=== PATIENT | female | born 1995 | race Caucasian/White ===

== ENCOUNTER 2019-10-03 12:18 | Outpatient (CLI) | payer MEDICAID, SELFPAY ==
--- NOTE | 2019-10-03 12:30 | US_ITS ---
WS: [id number] LIMITED OBSTETRICAL ULTRASOUND HISTORY: GESTATIONAL DIABETES COMPARISON: 07/14/2019 Presentation: Vertex. Cervix: Closed and normal length. Placenta: Anterior, no previa. Grade: 1 HEART: FHR of 144 BPM. measurements: BPD = 8.3 cm = 33w4d HC = 30.1 cm = 33w3d AC = 28.5 cm = 32w4d FL = 6.5 cm = 33w4d Visually the amniotic fluid is normal. Largest vertical pocket of fluid measures 4.0 cm. EFW: 2097 g; 73rd %. AGA by ultrasound: 33w2d FILIBERTO by ultrasound: 11/19/2019 Measurements are internally concordant. Appropriate growth since the prior ultrasound from 07/14/2019 . Less than 2 weeks discrepancy between the prior dating. US/[place] [id number] IMPRESSION: 1. Single intrauterine gestation of 33 weeks 2 days with an EDC of 11/19/2019. 2. No macrosomia. 3. weight at the 73rd percentile for age.
== END 2019-10-03 12:19 | disposition home or self-care (01) ==
LOC: RAD 12:23
PROVIDERS: Family Provider Family Medicine; PCP Family Medicine; Visit Provider Family Medicine
DX: O24.419 Gestational diabetes mellitus in pregnancy, unspecified control (principal); Z36.9 Encounter for antenatal screening, unspecified; Z3A.33 33 weeks gestation of pregnancy
CPT/HCPCS: 76816

== ENCOUNTER 2019-10-31 12:43 | Outpatient (CLI) | payer MEDICAID, SELFPAY ==
--- NOTE | 2019-10-31 12:48 | US_ITS ---
WS: [id number] BIOPHYSICAL PROFILE AND LIMITED OB. HISTORY: GESTATIONAL DIABETES COMPARISON: 10/03/2019, 07/14/2019 Presentation: Cephalic. Cervix: Poorly visualized. Placenta: Anterior with no previa or abruption. Grade: 1 HEART: FHR of 164BPM. measurements: BPD = 9.0 cm = 36w2d HC = 31.9 cm = 36w0d AC = 32.1 cm = 36w0d FL = 7.1 cm = 36w1d Amniotic fluid is visually normal. Largest vertical pocket is 3.7 cm. EFW: 2836g; 67th %. AGA by ultrasound: 36w1d FILIBERTO by ultrasound: 11/27/2019 Measurements are internally concordant. Appropriate growth since prior ultrasounds. Biophysical profile: Parameters are as follows: Breathin Movement: 2 Tone: 2 Fluid volume: 2 1. Biophysical profile score: 8/8. 2. Single intrauterine gestation of 36w1d and 11/27/2019. Measurements are internally concordant and appropriate growth since prior ultrasounds. 3. Estimated weight at the 67th percentile. US/US OB lmt w/ BPP wo NST IMPRESSION:
== END 2019-10-31 12:44 | disposition home or self-care (01) ==
LOC: RAD 12:45
PROVIDERS: Family Provider Family Medicine; PCP Family Medicine; Visit Provider Family Medicine
DX: O24.419 Gestational diabetes mellitus in pregnancy, unspecified control (principal); Z3A.36 36 weeks gestation of pregnancy
CPT/HCPCS: 76815; 76819

== ENCOUNTER 2019-10-31 13:42 | Outpatient (CLI) | payer MEDICAID, SELFPAY ==
[2019-10-31 13:42] VITALS: BMI 33.5
[2019-10-31 13:45] VITALS: RESP 16; TEMP 36.9
[2019-10-31 14:27] VITALS: BP 121/56; PULSE 110
== END 2019-10-31 14:32 | disposition home or self-care (01) ==
PROVIDERS: Family Provider Family Medicine; PCP Family Medicine; Visit Provider Family Medicine
DX: O24.419 Gestational diabetes mellitus in pregnancy, unspecified control (principal); Z3A.00 Weeks of gestation of pregnancy not specified
CPT/HCPCS: 59025

== ENCOUNTER 2019-11-03 16:25 | Outpatient (CLI) | payer MEDICAID, SELFPAY ==
[2019-11-03 16:43] VITALS: BP 136/65; PULSE 104
[2019-11-03 16:44] VITALS: RESP 17; TEMP 36.9
[2019-11-03 16:45] VITALS: BMI 74.5
[2019-11-03 17:04] VITALS: BP 126/66; PULSE 102
[2019-11-03 17:09] VITALS: BP 126/66; PULSE 102; RESP 18
== END 2019-11-03 17:12 | disposition home or self-care (01) ==
PROVIDERS: Family Provider Family Medicine; PCP Family Medicine; Visit Provider Family Medicine
DX: O24.419 Gestational diabetes mellitus in pregnancy, unspecified control (principal); Z3A.00 Weeks of gestation of pregnancy not specified
CPT/HCPCS: 59025; 99211

== ENCOUNTER 2019-11-07 10:16 | Outpatient (CLI) | payer MEDICAID, SELFPAY ==
--- NOTE | 2019-11-07 10:22 | US_ITS ---
WS: [id number] US OB BPP wo NST [id number] REASON FOR EXAM: GESTATIONAL DIABETES FINDINGS: The cervix measures 3.54 cm and appears to be closed. Cephalic presentation is noted. Anter ior placenta is seen normal. heart rate 144 beats for minute tone normal motion normal cardiac function normal biophysical profile 03/31. US/US OB BPP wo NST [id number] IMPRESSION: Biophysical profile 03/31 Cephalic presentation
== END 2019-11-07 10:17 | disposition home or self-care (01) ==
LOC: RAD 10:20
PROVIDERS: Family Provider Family Medicine; PCP Family Medicine; Visit Provider Family Medicine
DX: O24.419 Gestational diabetes mellitus in pregnancy, unspecified control (principal); Z3A.00 Weeks of gestation of pregnancy not specified
CPT/HCPCS: 76819

== ENCOUNTER 2019-11-07 10:53 | Outpatient (CLI) | payer MEDICAID, SELFPAY ==
[2019-11-07 12:05] VITALS: BP 119/64; PULSE 92; RESP 18; TEMP 36.7
== END 2019-11-07 12:07 | disposition home or self-care (01) ==
PROVIDERS: Family Provider Family Medicine; PCP Family Medicine; Visit Provider Family Medicine
DX: O16.9 Unspecified maternal hypertension, unspecified trimester (principal); Z3A.00 Weeks of gestation of pregnancy not specified
CPT/HCPCS: 59025; 99211

== ENCOUNTER 2019-11-10 13:01 | Outpatient (CLI) | payer MEDICAID, SELFPAY ==
[2019-11-10 13:20] VITALS: RESP 18; TEMP 37.1
[2019-11-10 13:41] VITALS: BMI 34.0
[2019-11-10 14:19] VITALS: BP 116/66; PULSE 104
[2019-11-10 14:20] VITALS: RESP 16; TEMP 36.8
== END 2019-11-10 14:21 | disposition home or self-care (01) ==
LOC: OPOB 13:31 → OBGYN 13:32 → OPOB 11-11 07:32
PROVIDERS: Family Provider Family Medicine; PCP Family Medicine; Visit Provider Family Medicine
DX: O24.419 Gestational diabetes mellitus in pregnancy, unspecified control (principal); Z3A.00 Weeks of gestation of pregnancy not specified
CPT/HCPCS: 59025

== ENCOUNTER 2019-11-14 10:40 | Outpatient (CLI) | payer MEDICAID, SELFPAY ==
--- NOTE | 2019-11-14 10:45 | US_ITS ---
WS: [id number] ULTRASOUND OB LIMITED TECHNIQUE: Limited ultrasound examination of the fetus. CLINICAL INFORMATION: GESTATIONAL DIABETES COMPARISON: November 07, 2019 FINDINGS: Cervix measures 4.4 cm Single interuterine gestation. Placental location is anterior. Placenta grade: 3 heart rate 138 BPM. Normal PRISCILLA Biophysical profile 8 out of 8. breathin movement: 2 tone: 2 Amniotic fluid: 2 IMPRESSION Normal biophysical profile 8 out of 8 Grade 3 placenta
== END 2019-11-14 10:41 | disposition home or self-care (01) ==
LOC: US 10:42
PROVIDERS: Family Provider Family Medicine; PCP Family Medicine; Visit Provider Family Medicine
DX: O24.419 Gestational diabetes mellitus in pregnancy, unspecified control (principal); Z3A.00 Weeks of gestation of pregnancy not specified
CPT/HCPCS: 76819

== ENCOUNTER 2019-11-14 11:10 | Outpatient (CLI) | payer MEDICAID, SELFPAY ==
[2019-11-14 11:28] VITALS: BMI 33.7
== END 2019-11-14 11:45 | disposition home or self-care (01) ==
LOC: OPOB 11:25 → OBGYN 11:26
PROVIDERS: Family Provider Family Medicine; PCP Family Medicine; Visit Provider Family Medicine
DX: O24.419 Gestational diabetes mellitus in pregnancy, unspecified control (principal); Z3A.00 Weeks of gestation of pregnancy not specified
CPT/HCPCS: 59025; 99211

== ENCOUNTER 2019-11-17 19:47 | Inpatient (IN) | payer MEDICAID, SELFPAY ==
[2019-11-17] VITALS (7 sets, daily range): BP systolic 123–153; BP diastolic 66–81; PULSE 88–97; TEMP 36.8; BMI 34.3
--- NOTE | 2019-11-17 19:52 | PM.OBGYHP ---
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 She presents at 38-4/7 weeks gestation for cervical ripening and induction of labor secondary to gestational diabetes requiring insulin. Patient has been pretty well controlled on Levemir 10 units twice daily. course has also been complicated by headaches as well as anemia of . testing has been fine. Present Details : 2 Para: 1 Date of Last Menstrual Period: 02/21/19 Calculated Date of Delivery: 11/28/19 Gestational Age Based on Last Menstrual Period: 38 Dating criteria OB: LMP confirmed by 2nd trimester US care: good care Ultrasounds: normal mid trimester US Obstetrical complications: gestational diabetes (Requiring insulin) and other (Anemia of ) Medical complications OB: psychiatric (Mood disorder for which she has been seeing behavioral health provider) Labs Blood type OB HPI: A (+) positive Rubella: Immune RPR: Negative GBS: Negative HBsAG: Negative Other Lab Information: Antibody screen: Negative Hemoglobin: Initially 12.6, recheck 10.9, and then 11 later GC/Chlamydia: Negative/negative Pap: Normal Quad screen: Negative Urine culture: Negative 3-hour GTT: Fasting 109, 1 hour 105, 2-hour 238, 3-hour 231 HIV screen: Negative L&D/Induction Specific History Indication for induction OB: medical complication (Gestational diabetes requiring insulin) Planned induction method: per misoprostol protocol Review of Systems Const: Denies: fever : Denies: vaginal bleeding or vaginal discharge Medications/Allergies Allergies Allergy/AdvReac Type Severity Reaction Status Date / Time No Known Allergies Allergy Verified 11/17/19 20:05 Physical Exam Narrative: EXAM NARRATIVE: For complete physical examination please refer to her record. heart tones have a baseline in the 120s to 130 with moderate variability and accelerations and no decelerations. She has no contractions. Const: COMMON NORMALS: no apparent distress, oriented x3, no limitations, healthy appearing, alert and well nourished : MANUAL OB EXAM: dilated (Closed), effaced 0% and station high Neuro: COMMON NORMALS: oriented x3 SENSORIUM/ORIENTATION: Yes alert Psych: COMMON NORMALS: mental status grossly normal, cooperative and affect normal (Blunted affect) Data : 11/17/19 20:40 A&P Assessment and plan (1) 38 weeks gestation of : Status: Acute Code(s): Z3A.38 - 38 weeks gestation of (2) Encounter for induction of labor: Cytotec per protocol... Patient has had this in the past, and she is aware of potential side effects and its mechanism of action. Status: Acute Code(s): Z34.90 - Encounter for supervision of normal , unspecified, unspecified trimester (3) Gestational diabetes requiring insulin: Will have her take her insulin this evening and will check her bedside fingerstick glucose per home regimen as long as she is eating. Status: Acute Code(s): O24.414 - Gestational diabetes mellitus in , insulin controlled (4) Anemia complicating : Status: Acute Code(s): O99.019 - Anemia complicating , unspecified trimester Attestations Medical Necessity Statement*: As patient has not yet delivered she will need at least one overnight stay and likely more. 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
[2019-11-17 21:01] LABS: Basophils % 0.2 %; Eosinophils # 0.1 10^3/uL (0.0-0.8); Eosinophils % 0.8 %; Hematocrit 35.3 % (37.0-47.0); Hemoglobin 11.1 g/dL (11.5-15.3); Lymphocytes # 3.6 10^3/uL (0.8-4.8); Lymphocytes % 29.7 %; Mean Corpuscular HGB Conc 31.4 g/dL (30.0-36.0); Mean Corpuscular Hemoglobin 27.2 pg (28.0-34.0); Mean Corpuscular Volume 86.5 fL (81-99); Monocytes # 0.9 10^3/uL (0.2-0.9); Neutrophils # 7.5 10^3/uL (1.8-7.7); Neutrophils % 61.9 %; Nucleated Red Blood Cells % 0 %; Platelet Count 468 10^3/cmm (130-400); Red Blood Count 4.08 10^6/uL (4.1-5.3); Red Cell Distribution Width 14.8 % (12.1-15.1); White Blood Count 12.1 10^3/uL (4.0-10.0)
[2019-11-17] MEDS: miSOPROStol 100 mcg tablet 25 MCG VAGINAL (21:24)
[2019-11-18] VITALS (30 sets, daily range): BP systolic 0–142; BP diastolic 0–78; PULSE 80–112; RESP 16–20; TEMP 36.6–37.1
[2019-11-18] MEDS: miSOPROStol 100 mcg tablet 25 MCG VAGINAL ×3 (01:17→18:43)
[2019-11-18 06:34] LABS: Glucose Point of Care 94 mg/dL (70-110)
--- NOTE | 2019-11-18 08:10 | PM.OBGYPN ---
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 She has reported increasing frequency and intensity of her contractions. Her bedside glucose was 94 this morning, and then she showered and ate breakfast. Labor: Dilation (cm): 0 Effacement (%): 0 Station: -5 Amniotic Membrane Status: Intact Monitor Mode: External Contraction Pattern: Irregular Contraction Intensity: Moderate Status: Category l Vitals/I&O/Wt Last Vital Signs Temp 98.8 F 11/18/19 04:00 Pulse 102 H 11/18/19 07:55 BP 127/67 11/18/19 07:55 Weight last 48 hrs Weight 200 lb Physical Exam Narrative: EXAM NARRATIVE: heart tones have been category 1 with moderate variability, normal baseline, accelerations and no decelerations. She is trever every 2 to 5 minutes and of mild to moderate intensity. : MANUAL OB EXAM: not dilated nor effaced and station high Psych: COMMON NORMALS: mental status grossly normal, thought process normal, cooperative, speech normal and activity/motor behavior normal SPEECH: Yes normal speech MOOD & AFFECT: Yes blunted affect THOUGHT PROCESS: normal thought process Data : 11/17/19 20:40 A&P Assessment and plan (1) Encounter for induction of labor: Since her contractions are increasing in frequency and intensity, we will continue to monitor her. Should her contractions decrease in frequency, we will likely give her another dose of Cytotec. Right now she denies need for anything for pain. Status: Acute Code(s): Z34.90 - Encounter for supervision of normal , unspecified, unspecified trimester (2) Anemia complicating : Status: Acute Code(s): O99.019 - Anemia complicating , unspecified trimester (3) Gestational diabetes requiring insulin: Since she had breakfast this morning, we will check a postprandial bedside glucose. We will then monitor her contraction pattern and make a decision regarding lunch in the next few hours. She will give herself her morning Levemir. Status: Acute Code(s): O24.414 - Gestational diabetes mellitus in , insulin controlled (4) 38 weeks gestation of : Status: Acute Code(s): Z3A.38 - 38 weeks gestation of Attestations Medical Necessity Statement*: As patient is trever with increasing frequency and intensity, she will require continued inpatient management. Coding Level of Care Code Acute Luncheonette Manager for Chg Fwd Diagnoses Encounter for induction of labor Z34.90 Anemia complicating O99.019 Gestational diabetes requiring insulin O24.414 38 weeks gestation of Z3A.38
[2019-11-18] MEDS: ondansetron 2 mg/ML SDV 2 mL 4 MG IVP (10:08)
[2019-11-18 10:15] LABS: Glucose Point of Care 97 mg/dL (70-110)
[2019-11-18 14:58] LABS: Glucose Point of Care 112 mg/dL (70-110)
--- NOTE | 2019-11-18 17:31 | P.PN_ITS ---
[employer] Subjective Subjective: Interval history: Patient received her third dose of Cytotec earlier this afternoon after lunch and has been trever fairly regularly. She feels as though her contractions are increasing in intensity. She feels as though they are about every 4 to 5 minutes. She has been up ambulating and has just finished her supper. Medications: Reviewed: Yes Labor: Dilation (cm): 1 Effacement (%): 50 Station: -2 Amniotic Membrane Status: Intact Monitor Mode: External Contraction Frequency: 5 Contraction Pattern: Irregular Contraction Intensity: Moderate Status: Category l Vitals/I&O/Wt Last Vital Signs Temp 98.5 F 11/18/19 13:28 Pulse 87 11/18/19 17:02 Resp 17 11/18/19 13:28 BP 116/58 11/18/19 17:02 11/18/19 11/18/19 11/18/19 06:59 14:59 22:59 Intake Total 240 / 240 Balance 240 / 240 Weight last 48 hrs Weight 200 lb Physical Exam Narrative: EXAM NARRATIVE: heart tones have been category 1 with a normal baseline, moderate variability, many accelerations and no decelerations. Patient has had intermittent monitoring and when last on the monitor her contractions were every 4 to 5 minutes and of moderate intensity. : MANUAL OB EXAM: dilated 1 cm, effaced 50% and station (-2 to -3) Psych: COMMON NORMALS: mental status grossly normal, thought process normal, cooperative, speech normal and activity/motor behavior normal SPEECH: Yes normal speech MOOD & AFFECT: Yes blunted affect THOUGHT PROCESS: normal thought process Data : 11/17/19 20:40 Other Labs: Bedside glucose checks have been 94, 97 A&P Assessment and plan (1) 38 weeks gestation of : Status: Acute Code(s): Z3A.38 - 38 weeks gestation of (2) Encounter for induction of labor: Patient has opted for a fourth dose of Cytotec and continues to make progress. We discussed pain medication options, and she states that she is fine for now. Status: Acute Code(s): Z34.90 - Encounter for supervision of normal , unspecified, unspecified trimester (3) Anemia complicating : Status: Acute Code(s): O99.019 - Anemia complicating , unspecified trimester (4) Gestational diabetes requiring insulin: Patient took her evening Levemir last night and then her morning dose this morning and has continued to eat regular meals. She just finished supper, so we will do a postprandial bedside glucose check within the next 1 to 2 hours. We will then decide later this evening when we will next be checking her glucose and if she will have her evening insulin. Status: Acute Code(s): O24.414 - Gestational diabetes mellitus in , insulin controlled Attestations Medical Necessity Statement*: As patient is starting to dilate and has not yet delivered but is actively trever, therefore she will continue to require inpatient hospitalization. Coding Level of Care Code Acute Carding Machine Operator for Chg Fwd Diagnoses 38 weeks gestation of Z3A.38 Encounter for induction of labor Z34.90 Anemia complicating O99.019 Gestational diabetes requiring insulin O24.414
[2019-11-18 19:04] LABS: Glucose Point of Care 96 mg/dL (70-110)
[2019-11-18] MEDS: morphine 4 mg/mL SDV 1 mL 8 MG IM (22:48)
[2019-11-18] MEDS: promethazine 25 mg/mL SDV 1 mL IM (22:48)
[2019-11-19] VITALS (59 sets, daily range): BP systolic 0–155; BP diastolic 0–75; PULSE 64–97; RESP 16–18; TEMP 36.6–36.8
--- NOTE | 2019-11-19 06:14 | PM.OBGYPN ---
WORK STUDY STUDENT Subjective Subjective: Interval history: Patient received a fourth dose of Cytotec early last evening and then had a cervical exam at about 11:00 last evening which revealed no change. At that point we had her take the low-dose morphine Phenergan sleeper and she was able to get good rest throughout the night. She stated that she did feel some contractions, but they were more mild and irregular. Medications: Reviewed: Yes Labor: Dilation (cm): 1 Effacement (%): 75 Station: -2 Amniotic Membrane Status: Intact Monitor Mode: External Contraction Pattern: Irregular Contraction Intensity: Mild Status: Category l Vitals/I&O/Wt Last Vital Signs Temp 98.2 F 11/18/19 23:15 Pulse 72 11/19/19 06:03 Resp 16 11/18/19 23:15 BP 120/62 11/19/19 06:03 11/18/19 11/18/19 11/19/19 14:59 22:59 06:59 Intake Total 240 / 240 Balance 240 / 240 Weight last 48 hrs Weight 200 lb Physical Exam Narrative: EXAM NARRATIVE: heart tones have a baseline of 130s to 140 with moderate variability, many accelerations and an occasional variable deceleration. Const: COMMON NORMALS: no apparent distress, oriented x3, healthy appearing, alert and well nourished : MANUAL OB EXAM: dilated (1-1/2 to 2 cm dilated), effaced 75% and station -2 Neuro: COMMON NORMALS: oriented x3 SENSORIUM/ORIENTATION: Yes alert Psych: COMMON NORMALS: mental status grossly normal, thought process normal, cooperative, speech normal and activity/motor behavior normal SPEECH: Yes normal speech MOOD & AFFECT: Yes blunted affect THOUGHT PROCESS: normal thought process Data : 11/17/19 20:40 Other Labs: Fasting bedside glucose pending A&P Assessment and plan (1) Encounter for induction of labor: We will plan to obtain heart rate tracing and then place a dose of Cytotec this morning. She can then shower and eat breakfast and then, will likely proceed with Pitocin if not laboring off of the dose of Cytotec. Status: Acute Code(s): Z34.90 - Encounter for supervision of normal , unspecified, unspecified trimester (2) Anemia complicating : Status: Acute Code(s): O99.019 - Anemia complicating , unspecified trimester (3) Gestational diabetes requiring insulin: Will check a fasting bedside glucose as well as a glucose 1 to 2 hours after breakfast. Status: Acute Code(s): O24.414 - Gestational diabetes mellitus in , insulin controlled (4) 38 weeks gestation of : Status: Acute Code(s): Z3A.38 - 38 weeks gestation of Attestations Medical Necessity Statement*: As patient has not yet delivered she will require inpatient care. Coding Level of Care Code Acute Day Care Director for Chg Fwd Diagnoses Encounter for induction of labor Z34.90 Anemia complicating O99.019 Gestational diabetes requiring insulin O24.414 38 weeks gestation of Z3A.38
[2019-11-19] MEDS: miSOPROStol 100 mcg tablet 25 MCG VAGINAL (06:28)
[2019-11-19 06:46] LABS: Glucose Point of Care 76 mg/dL (70-110)
[2019-11-19] MEDS: lactated ringers 1,000 ML 999 ML IV (10:00)
[2019-11-19 11:18] LABS: Glucose Point of Care 99 mg/dL (70-110)
[2019-11-19] MEDS: oxytocin 30 UNIT/500 ML BAG IV (11:46)
[2019-11-19 14:11] LABS: Glucose Point of Care 74 mg/dL (70-110)
[2019-11-19] MEDS: lactated ringers 1,000 ML 125 ML IV (14:32)
[2019-11-19 19:25] LABS: Glucose Point of Care 65 mg/dL (70-110)
--- NOTE | 2019-11-19 19:28 | P.DS_ITS ---
Discharge Providers DERRICK BARGE OPERATOR Date of Admission: 11/18/19 08:16 Date of Discharge: 11/19/19 Attending Provider at Admission: Misa Caban MD Attending Provider at Discharge: Misa Caban MD Primary Care Provider: Misa Caban MD Diagnoses at Discharge Discharge Diagnosis (1) 38 weeks gestation of : Status: Acute (2) Encounter for induction of labor: Status: Acute (3) Gestational diabetes requiring insulin: Status: Acute (4) Anemia complicating : Status: Acute (5) Failed induction of labor, antepartum: Status: Acute Reason for Visit Reason for Visit: Reason For Visit: induction Hospital Course Hospital Course: Patient arrived the evening of 11/17/2019 for Cytotec cervical ripening and induction of labor secondary to her gestational diabetes requiring insulin. She received a dose of Cytotec that evening followed by another dose of Cytotec overnight. She ate breakfast and showered the morning of 11/18/2019, and then we placed a third dose of Cytotec. After the third dose she was found to be 1-1/2 cm dilated and 50% effaced. She then had the fourth dose of Cytotec placed yesterday early evening. After the fourth dose she was dilated to 1-1/2 cm and was 50% effaced, essentially no change. We had her rest through the night since that dose of Cytotec was given in the evening. She rested well last night and this morning was found to be 1-1/2 cm dilated and 75% effaced. She did not want to go home and opted for another dose of Cytotec and then was given the option of going home versus Pitocin up to 6 milliunits/min for cervical ripening. She opted for the Pitocin and contracted with increased frequency and intensity but did not make any cervical change. Because her cervix is quite posterior, vaginal exams are uncomfortable, and placement of a cervical bulb, if able to be completed would be quite painful as well. I also explained that amniotomy would not be a farley move at this time secondary to the fact that that would put her at increased risk for given the fact that she is only dilated 1-1/2 cm. Discharge Summary: At this point after 5 doses of Cytotec and about a 6-hour run of low-dose Pitocin in an attempt to ripen her cervix, we have no further options at this time other than to have her rest and return to be seen in the clinic the morning of 11/21/2019. Although disappointed, patient is in agreement and understands that our options are limited at this time. heart tones have remained category 1, and her bedside glucose readings have all been under 120. Physical Exam Narrative: EXAM NARRATIVE: heart tones are category 1 with a baseline in the 130s with moderate variability, accelerations and no decelerations. Contractions are currently irregular and at least 7 minutes apart at this time. Const: COMMON NORMALS: no apparent distress, oriented x3, healthy appearing, alert and well nourished : MANUAL OB EXAM: dilated (1-1/2 cm dilated), effaced 75% and station -2 (Very posterior) Neuro: COMMON NORMALS: oriented x3 SENSORIUM/ORIENTATION: Yes alert Psych: COMMON NORMALS: mental status grossly normal, thought process normal, cooperative, speech normal and activity/motor behavior normal SPEECH: Yes normal speech MOOD & AFFECT: Yes blunted affect THOUGHT PROCESS: normal thought process Discharge Data Data Completed and Pending: Labs from last 24 hours 11/19/19 11/19/19 11/19/19 18:24 14:06 10:04 POC Glucose 65 74 99 11/19/19 06:43 POC Glucose 76 Vitals: Last Vital Signs Temp 98.3 F 11/19/19 07:05 Pulse 82 11/19/19 19:24 Resp 16 11/19/19 07:05 BP 134/70 11/19/19 19:24 Discharge Plan Discharge Patient Disposition: Home, Self-Care Condition: Stable Prescriptions: Continued Levemir U-100 Insulin 10 unit SUBCUT BID RF: 0 Vitamin 1 tab PO DAILY RF: 0 ferrous sulfate 1 tab PO DAILY RF: 0 Discharge Orders: Discharge Order (Routine); Ordered 11/19/19 Ordered By: Misa Caban Referrals: Misa Caban MD [Primary Care Provider] - 1-3 days (Patient is to call my office ThursdayNovember 21, 2019 at 8 AM to get an appointment to see me that morning.) Discharge Diet: Diabetic Discharge Activity: Resume usual activity Discharge Attestations DERRICK BARGE OPERATOR Time Spent in Discharge Care*: greater than 30 min Specific Discharge Activities: Specific discharge activities: educating patient, documenting/other paperwork and evaluating patient/reviewing data Status at Discharge: Cognitive status at discharge: cognitively intact , Behavioral status at discharge: cooperative , Functional status at discharge: independent ambulation Overall status at discharge: patient is back to baseline Coding Level of Care Code Acute Splitter Machine for Chg Fwd Diagnoses 38 weeks gestation of Z3A.38 Encounter for induction of labor Z34.90 Gestational diabetes requiring insulin O24.414 Anemia complicating O99.019 Failed induction of labor, antepartum O61.9
== END 2019-11-19 20:15 | disposition home or self-care (01) | DRG 833 ==
PROVIDERS: Admitting Provider Family Medicine; Family Provider Family Medicine; PCP Family Medicine; Visit Provider Family Medicine
DX: O24.414 Gestational diabetes mellitus in pregnancy, insulin controlled (principal); O99.02 Anemia complicating childbirth; O61.9 Failed induction of labor, unspecified; Z3A.38 38 weeks gestation of pregnancy; D64.9 Anemia, unspecified
CPT/HCPCS: 12345; 36415; 36416; 82962; 85025; 96372; 96375; G0378; G0379; J2270; J2405; J2550

== ENCOUNTER 2019-11-21 12:56 | Inpatient (IN) | payer MEDICAID, SELFPAY ==
[2019-11-21] VITALS (65 sets, daily range): BP systolic 0–157; BP diastolic 0–80; PULSE 74–120; RESP 16–18; TEMP 36.6–36.9; O2SAT 92–99; BMI 32.9
[2019-11-21 14:05] LABS: Basophils % 0.2 %; Eosinophils # 0.1 10^3/uL (0.0-0.8); Eosinophils % 0.8 %; Hematocrit 36.2 % (37.0-47.0); Hemoglobin 11.4 g/dL (11.5-15.3); Lymphocytes # 2.7 10^3/uL (0.8-4.8); Lymphocytes % 30.5 %; Mean Corpuscular HGB Conc 31.5 g/dL (30.0-36.0); Mean Corpuscular Hemoglobin 27.3 pg (28.0-34.0); Mean Corpuscular Volume 86.8 fL (81-99); Mean Platelet Volume 10.2 fL (7.4-10.4); Monocytes # 0.5 10^3/uL (0.2-0.9); Monocytes % 5.5 %; Neutrophils # 5.6 10^3/uL (1.8-7.7); Neutrophils % 62.8 %; Nucleated Red Blood Cells % 0 %; Platelet Count 457 10^3/cmm (130-400); Red Blood Count 4.17 10^6/uL (4.1-5.3); Red Cell Distribution Width 14.6 % (12.1-15.1)
[2019-11-21] MEDS: lactated ringers 1,000 ML 125 ML IV ×2 (14:16→20:19)
[2019-11-21] MEDS: oxytocin 30 UNIT/500 ML BAG IV (14:17)
--- NOTE | 2019-11-21 17:31 | PM.OBGYHP ---
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 She presents at 39 weeks gestation for induction of labor secondary to gestational diabetes requiring insulin. She had presented on 11/17/2019 in the evening for cervical ripening and induction of labor. She was then discharged on 11/19/2019 after she had received 5 doses of Cytotec and a 6-hour trial of Pitocin low-dose in an attempt to ripen her cervix. Upon presentation on 11/17/2019 she was long thick closed high and posterior and upon discharge the evening of 11/19/2019 she was 1-1/2 cm dilated and 75% effaced still high and posterior. Patient stated that she did not have any contractions after discharge on 11/19/2019 and presented to the clinic later this morning for cervical assessment. In clinic she was found to be 2-1/2 cm dilated and over 75% effaced and was -3 station but very posterior. Her membranes were swept at that time, and she presented to the OB department after 1 PM for induction of labor. Present Details : 2 Para: 1 Date of Last Menstrual Period: 02/21/19 Calculated Date of Delivery: 11/28/19 Gestational Age Based on Last Menstrual Period: 39 Dating criteria OB: LMP confirmed by 2nd trimester US care: good care Ultrasounds: normal mid trimester US Obstetrical complications: gestational diabetes (Requiring insulin) and other (Anemia of ) Medical complications OB: psychiatric (Cyclic mood swings) Labs Blood type OB HPI: A (+) positive Rubella: Immune RPR: Negative GBS: Negative HBsAG: Negative Other Lab Information: Group B strep: Negative Antibody screen: Negative GC/Chlamydia: Negative/negative HIV test: Negative Pap: Normal Review of Systems Const: Denies: fever : Denies: vaginal bleeding, vaginal discharge or pelvic pain Medications/Allergies Allergies Allergy/AdvReac Type Severity Reaction Status Date / Time No Known Allergies Allergy Verified 11/21/19 17:40 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 Date GA/Weeks Outcome Route Wt Inf Gender Labor Lgth Comp. Anesthesia Location 03/15/18 39 live - full term Vaginal 7 lb 7 oz Male [facility] Delivery Date: 03/15/18 On 11/21/19 @ 17:46 Misa Caban Gestational diabetes Vitals/I&O/Wt Last Vital Signs Temp 97.8 F 11/21/19 15:48 Pulse 102 H 11/21/19 17:09 Resp 16 11/21/19 15:48 BP 0/0 11/21/19 17:23 11/21/19 11/21/19 11/21/19 06:59 14:59 22:59 Intake Total 39.883 / 39.883 293.000 / 332.883 Balance 39.883 / 39.883 293.000 / 332.883 Weight last 48 hrs Weight 198 lb Physical Exam Narrative: EXAM NARRATIVE: heart tones have a baseline in the 140s to 150 with moderate variability and accelerations as well as an occasional variable deceleration. Contractions are every 3 minutes and moderate. Const: COMMON NORMALS: no apparent distress, oriented x3, healthy appearing, alert and well nourished : MANUAL OB EXAM: dilated 4 cm, effaced (90%) and station (-3, posterior) AMNIOTIC FLUID: clear (Trickled over my glove during exam at 1725.) Psych: COMMON NORMALS: mental status grossly normal, thought process normal, cooperative, speech normal and activity/motor behavior normal APPEARANCE: Yes well kempt ATTITUDE: Yes engaged ACTIVITY/MOTOR BEHAVIOR: Yes appropriate eye contact MOOD & AFFECT: Yes blunted affect Data : 11/21/19 13:40 A&P Assessment and plan (1) 39 weeks gestation of : Status: Acute (2) Encounter for induction of labor: Patient was sent over from the office for induction of labor. She is currently on 12 milliunits/min of Pitocin and trever every 2-1/2 to 3-1/2 minutes with moderate intensity. Membranes ruptured spontaneously at 1725 and were productive of a small amount of clear fluid. Patient has opted for an epidural and is receiving IV fluids to prepare for its placement. Status: Acute (3) Gestational diabetes requiring insulin: Patient took her Levemir this morning and ate breakfast and then lunch. Her blood glucose has been well controlled. We will check her bedside glucose every 4 hours with a goal of less than 120. She has ice chips only after lunch through delivery. Status: Acute (4) Anemia complicating : Hemoglobin is above 11 coming in for delivery today. Status: Acute Attestations Medical Necessity Statement*: As patient has experienced spontaneous rupture of membranes and is actively laboring, she will continue to need inpatient hospitalization. Coding Level of Care Code Acute Turret Punch Press Operator for Chg Fwd Diagnoses 39 weeks gestation of Z3A.39 Encounter for induction of labor Z34.90 Gestational diabetes requiring insulin O24.414 Anemia complicating O99.019
[2019-11-21] MEDS: lactated ringers 1,000 ML 999 ML IV (17:47)
--- NOTE | 2019-11-21 17:55 | P.ANESASSM_ITS ---
Pre-Anesthetic Assessment Pre-Anesthetic Assessment: Height/Weight: Height 1.65 m Weight 89.811 kg Temp Pulse Resp BP 97.8 F 87 16 143/76 11/21/19 15:48 11/21/19 17:54 11/21/19 15:48 11/21/19 17:54 Preop Diagnosis: labor pain Proposed Procedure: epidural Exam: Pre-Anes Outpt Exam: alert, oriented x 3, clear to auscultation bilaterally and regular rate & rhythm Other Pertinent Information: no changes since preop assessment. will continue with epidural placement Meds/Allergies Current Medications: Current Medications Generic Name Dose Route Start Last Admin Trade Name Freq PRN Reason Stop Dose Admin Lactated Ringer's 1,000 mls @ 125 m ls/hr 11/21/19 13:30 11/21/19 17:20 Lactated Ringers IV 125 mls/hr .Q8H JOSEFA Infusion Oxytocin 30 unit in 500 ml s @ 1 mls/hr 11/21/19 13:30 11/21/19 17:20 Pitocin IV 12 milliunit/min .Q24H JOSEFA 12 mls/hr Titration Protocol 1 MILLIUNIT/MIN Lactated Ringer's 1,000 mls @ 999 m ls/hr 11/21/19 17:02 11/21/19 17:47 Lactated Ringers IV 11/21/19 18:02 999 mls/hr .Q1H1M ONE Administration PFSH Anesthesia PFSH: Medical History Frequent headaches Mood disorder Seasonal allergies Social History (Updated 11/21/19 @ 17:41 by Misa Caban MD) Smoking and tobacco status: never smoked Second hand smoke exposure: No Smoking risk assessment/counseling performed?: No Alcohol intake: never Adopted: No Caregiver/support person: No Lives independently: Yes Household members: significant other Housing: House Marital status: Number of children: 1 Number of grandchildren: 0 History of recent travel: No Female Reproductive History: Date of last menstrual period: 02/21/19 Grav andria: 2 Data Anesthesia CBC & Chem 7: 11/21/19 13:40 Other Labs: Laboratory Results - last 48 hr 11/21/19 13:40 WBC 9.0 RBC 4.17 Hgb 11.4 L Hct 36.2 L MCV 86.8 MCH 27.3 L MCHC 31.5 RDW 14.6 Plt Count 457 H MPV 10.2 Neut % (Auto) 62.8 Lymph % (Auto) 30.5 Evans % (Auto) 5.5 Eos % (Auto) 0.8 Baso % (Auto) 0.2 Neut # (Auto) 5.6 Lymph # (Auto) 2.7 Evans # (Auto) 0.5 Eos # (Auto) 0.1 Baso # (Auto) 0.0 Nucleated RBC % (auto) 0 Nucleated RBCs # 0.0 Cardiac Studies: No Data to Display
--- NOTE | 2019-11-21 18:24 | P.ANES_ITS ---
Anesthesia Procedures Procedure/Date: 11/21/19 epidural Procedure Narrative: epidural complete, bolus given, epidural pump initiated with DRAIN TILE PRESS OPERATOR education given, vitals taken during procedure using OBIX system and satisfactory throughout, patient admits to decrease pain, report of procedure to OB RN Epidural: Time Out Performed: Yes Consents Signed: Procedure Consent Consent: requested by attending/covering physician, from patient, risks and benefits reviewed and patient agrees to proceed Lumbar Level: L3-L4 Epidural position: sitting Epidural procedure: sterile prep of area, 1% lidocaine to numb the area (3 mL), 18 g needle, negative for paresthesia passed, neg for paresthesia, test dose given, 1.5% xylocaine 1:200k epi (5 mL), 0.2% Ropivacaine bolus ml (5 mL), placed PCEA, no systemic response, sterile dressing applied, L.U.D. no apparent complications and 0.2% Ropiavacaine @ mls/hr (13 mL/hr)
[2019-11-21 20:52] LABS: Glucose Point of Care 109 mg/dL (70-110)
[2019-11-21 20:52] LABS: Glucose Point of Care 87 mg/dL (70-110)
[2019-11-21 23:26] LABS: Glucose Point of Care 78 mg/dL (70-110)
[2019-11-22] VITALS (54 sets, daily range): BP systolic 0–150; BP diastolic 0–84; PULSE 73–122; RESP 16–18; TEMP 36.7–37.2; O2SAT 98
[2019-11-22] MEDS: dextrose 5%-lactated ringers 1,000 ML 125 ML IV (02:12)
[2019-11-22 03:31] LABS: Glucose Point of Care 98 mg/dL (70-110)
[2019-11-22] MEDS: miSOPROStol 200 mcg Tablet 800 MCG PR (04:55)
[2019-11-22] MEDS: methylergonovine 0.2 mg/mL INJ 1 mL IM (05:00)
--- NOTE | 2019-11-22 05:14 | P.PCNOB_ITS ---
Delivery Note: Date of delivery: November 22, 2019 Pre-delivery diagnoses: 39 weeks gestation of Encounter for induction of labor Gestational diabetes requiring insulin Anemia complicating Spontaneous rupture of membranes productive of clear fluid, initially small amount and with subsequent spontaneous rupture of fore bag a large amount Epidural anesthesia Op report anesthesia: Epidural Delivering Physician: Dr. Caban Estimated blood loss (mL): 500 Pre-Delivery Course: Patient arrived the afternoon of 11/21/2019 from the clinic where her membranes were swept and she was found to be 2-1/2 cm dilated and more than 75% effaced. She arrived for induction of labor secondary to gestational diabetes requiring insulin. Upon arrival to the labor room she was 4 cm dilated and 80% effaced but was not trever spontaneously. We began Pitocin per the moderate dose protocol and increased it regularly to 22 milliunits/min to obtain a contraction pattern which was every 2-1/2 to 3-1/2 minutes. Patient experienced spontaneous rupture of membranes at 1725 on 11/21/2019. This was productive of a small amount of clear fluid. Patient then opted for her epidural, received it and became comfortable. She gradually dilated to a 7 at approximately 2 AM on 11/22/2019 and then had a rupture of a f ore bag just as she was found to be completely dilated, which was at 4:19 AM on 11/22/2019. Delivery: We began the active portion of the second stage of her labor at 4:29 AM, and 11 minutes later at 4:40 AM she delivered a viable female . Head was straight OA. There was a double nuchal cord, both of which were loose and easily manually reduced on the perineum. Bulb suctioning was done upon delivery of the baby's head and then again after manual reduction of the nuchal cord x2 and delivery of the body. Baby was placed on maternal abdomen, and cord was clamped by myself at approximately 50 seconds after delivery. Cord was cut by the father the baby. Gentle traction was placed on the cord, and intravenous Pitocin was begun in routine doses intravenously. The placenta was delivered at 4:51 AM and was intact and appeared normal. The perineum and cervix were inspected, and there was a left periurethral abrasion noted which did not require any type of repair. Fundal exam found an atonic uterus which responded to fundal massage. Uterine exploration revealed a few small clots which were readily manually extracted. Uterus then was found to be intermittently atonic, and Cytotec 800 mg per rectum was given followed by IM Methergine and tranexamic acid. Patient also underwent intermittent fundal massage, and she quickly firms up with massage. Post-Delivery Status: Mother and baby are stable. Baby weighed 7 pounds 7 ounces and was 19 inches in length. She had Apgars of 8 at 1 minute and 9 at 5 minutes. A&P Assessment and plan (1) 39 weeks gestation of : Status: Resolved (2) Encounter for induction of labor: Status: Resolved (3) Gestational diabetes requiring insulin: We cannot discontinue bedside glucose checks and Levemir and will check a 2-hour glucose tolerance test at her 6-week visit. Status: Acute (4) Anemia complicating : Status: Resolved (5) Normal spontaneous vaginal delivery: Routine orders Status: Acute (6) Uterine atony, , current hospitalization: Uterus is currently firm. She has intravenous Pitocin going, and we will follow that up with a second bag. She is also received Cytotec, Methergine and tranexamic acid. EBL was 500 mL's. Status: Acute (7) Periurethral abrasion, delivered, current hospitalization: Status: Acute Coding Level of Care Code Acute Real Estate Management Specialist for Chg Fwd Diagnoses 39 weeks gestation of Z3A.39 Encounter for induction of labor Z34.90 Gestational diabetes requiring insulin O24.414 Anemia complicating O99.019 Normal spontaneous vaginal delivery O80 Uterine atony, , current hospitalization O75.89 Periurethral abrasion, delivered, current hospitalization O71.82
[2019-11-22] MEDS: oxytocin 30 UNIT/500 ML BAG 600 UNIT IV (05:19)
[2019-11-22] MEDS: ondansetron 2 mg/ML SDV 2 mL 4 MG IVP (05:35)
[2019-11-22] MEDS: benzocaine-menthol 78 gm Canister 1 SPRAY TOPICAL (09:05)
[2019-11-22] MEDS: docusate sodium 100 mg Capsule PO ×2 (09:06→18:27)
[2019-11-22] MEDS: lanolin oint 7 gm 1 APPLIC TOPICAL (09:06)
[2019-11-22] MEDS: prenatal vitamin Capsule 1 CAP PO (09:06)
[2019-11-22 17:28] LABS: Hematocrit 33.6 % (37.0-47.0); Hemoglobin 10.5 g/dL (11.5-15.3); Mean Corpuscular HGB Conc 31.3 g/dL (30.0-36.0); Mean Corpuscular Hemoglobin 27.3 pg (28.0-34.0); Mean Corpuscular Volume 87.3 fL (81-99); Mean Platelet Volume 10.4 fL (7.4-10.4); Platelet Count 404 10^3/cmm (130-400); Red Blood Count 3.85 10^6/uL (4.1-5.3); Red Cell Distribution Width 14.6 % (12.1-15.1); White Blood Count 13.7 10^3/uL (4.0-10.0)
[2019-11-23 05:59] VITALS: BP 117/74; PULSE 80; RESP 16; TEMP 36.6; O2SAT 98
--- NOTE | 2019-11-23 08:39 | PC.NURSE ---
pt in nursery with significant other watching under radiant warmer.
--- NOTE | 2019-11-23 09:22 | PC.NURSE ---
in nursery with significant other at the radiant warmer looking over .
[2019-11-23] MEDS: docusate sodium 100 mg Capsule PO (09:30)
[2019-11-23] MEDS: prenatal vitamin Capsule 1 CAP PO (09:30)
[2019-11-23 10:44] VITALS: BP 128/80; PULSE 84; RESP 18; TEMP 36.9
--- NOTE | 2019-11-23 11:55 | P.DS_ITS ---
Discharge Providers SEWER PIPE LAYER Date of Admission: 11/21/19 12:56 Date of Discharge: 11/23/19 Attending Provider at Admission: Misa Caban MD Attending Provider at Discharge: Misa Caban MD Primary Care Provider: Misa Caban MD Diagnoses at Discharge Discharge Diagnosis (1) 39 weeks gestation of : Status: Resolved (2) Encounter for induction of labor: Status: Resolved (3) Gestational diabetes requiring insulin: Status: Acute (4) Anemia complicating : Status: Resolved (5) Normal spontaneous vaginal delivery: Status: Acute (6) Uterine atony, , current hospitalization: Status: Resolved (7) Periurethral abrasion, delivered, current hospitalization: Status: Acute Reason for Visit Reason for Visit: Reason For Visit: INDUCTION Hospital Course Hospital Course: Patient arrived early in the afternoon of 11/21/2019 after having her membranes swept in the clinic earlier that day. She was started on Pitocin for induction of labor secondary to gestational diabetes requiring insulin. She was 39 weeks gestation and had left the clinic 2-1/2 cm and about 80% effaced and, after arrival at the hospital a few hours later was 4 cm dilated and 80% effaced but was not trever. Her Pitocin was gradually increased to 22 milliunits/min in order to achieve an every 2-1/2 to 3-minute contraction pattern. Patient experienced spontaneous rupture of membranes at around 5:30 PM on 11/21/2019, however, there was just a small amount of fluid at that time. However, later when she was found to be completely dilated she had spontaneous rupture of a fore bag with a large amount of clear fluid. She then had a very short active portion of the second stage of labor and delivered a viable female weighing 7 pounds 7 ounces with Apgars of 8 at 1 minute and 9 at 5 minutes at 4:19 AM on 11/22/2019. She then had intermittent uterine atony but did not lose enough blood to call that a hemorrhage. However we still gave extra Pitocin, Cytotec, tranexamic acid and Methergine. day 1 mother is stable and has minimal bleeding and really no pain to speak of. Ibuprofen is taking care of what little she has. She will be thinking about her control options and we can discuss that more at her visit. Discharge Summary: Patient is ready for discharge, but baby needs to stay at least another day. Therefore, mother will board with baby. She is aware of the Covid-19 policy. Information Peripartum Data: Infant Delivery Method: Vaginal Physical Exam Neck/C-Spine: COMMON NORMALS: no JVD Resp: COMMON NORMALS: normal respiratory effort and clear to auscultation bilaterally AUSCULTATION: clear to auscultation bilaterally Cardio: COMMON NORMALS: no JVD, regular rate, regular rhythm, S1 normal heart sound and S2 normal heart sound RATE: regular rate RHYTHM: regular rhythm HEART SOUNDS: S1 normal and S2 normal : UTERUS PALPATION: Yes other OB (Fundus is firm and 3 fingerbreadths below the umbilicus, nontender) Extremity: COMMON NORMALS: no pedal edema Urinary Catheter Management^: Caceres: Cath Placed During This Visit: yes Reason for Continuing Indwelling Catheter: Other Urinary Catheter Date of Insertion: 11/21/19 Urinary Catheter Time of Insertion: 18:00 Discharge Data Data Completed and Pending: Labs from last 24 hours 11/22/19 17:00 WBC 13.7 H RBC 3.85 L Hgb 10.5 L Hct 33.6 L MCV 87.3 MCH 27.3 L MCHC 31.3 RDW 14.6 Plt Count 404 H MPV 10.4 Vitals: Last Vital Signs Temp 98.5 F 11/23/19 10:44 Pulse 84 11/23/19 10:44 Resp 18 11/23/19 10:44 BP 128/80 11/23/19 10:44 Pulse Ox 98 11/23/19 05:59 Discharge Plan Discharge Patient Disposition: Home, Self-Care Condition: Stable Prescriptions: New ibuprofen 800 mg Tablet 800 mg PO TID 10 Days Qty: 30 RF: 0 Continued Vitamin 1 tab PO DAILY RF: 0 Discontinued Levemir U-100 Insulin 10 unit SUBCUT BID RF: 0 ferrous sulfate 1 tab PO DAILY RF: 0 Discharge Orders: Discharge Order (Routine); Ordered 11/23/19 Ordered By: Misa Caban Referrals: Misa Caban MD [Primary Care Provider] - 6 Weeks (Please call [facility] to schedule a 6-week visit with Dr. Caban at which time we will do a fasting 2-hour glucose tolerance test.) Discharge Diet: Regular Discharge Activity: Limit activity as instructed Discharge Attestations SEWER PIPE LAYER Time Spent in Discharge Care*: less than 30 min Specific Discharge Activities: Specific discharge activities: educating patient, documenting/other paperwork and evaluating patient/reviewing data Status at Discharge: Cognitive status at discharge: cognitively intact , Behavioral status at discharge: cooperative , Functional status at discharge: independent ambulation Overall status at discharge: patient is progressing back to baseline Coding Level of Care Code Acute Anesthesiology Physician for Chg Fwd Diagnoses 39 weeks gestation of Z3A.39 Encounter for induction of labor Z34.90 Gestational diabetes requiring insulin O24.414 Anemia complicating O99.019 Normal spontaneous vaginal delivery O80 Uterine atony, , current hospitalization O75.89 Periurethral abrasion, delivered, current hospitalization O71.82
[2019-11-23 14:57] VITALS: BP 126/82; PULSE 80; RESP 18; TEMP 36.7
== END 2019-11-23 15:03 | disposition home or self-care (01) | DRG 807 ==
PROVIDERS: Admitting Provider Family Medicine; Family Provider Family Medicine; PCP Family Medicine; Visit Provider Family Medicine
DX: O24.424 Gestational diabetes mellitus in childbirth, insulin controlled (principal); Z37.0 Single live birth; O99.02 Anemia complicating childbirth; D64.9 Anemia, unspecified; O69.2XX0 Labor and delivery complicated by other cord entanglement, with compression, not applicable or unspecified; Z3A.39 39 weeks gestation of pregnancy
CPT/HCPCS: 12345; 36415; 36416; 51702; 59025; 59409; 82962; 85025; 85027; 96372; 96375; J2210; J2405; J2795

== ENCOUNTER → 2020-01-17 13:34 | Outpatient (BNVA) | payer MEDICAID, SELFPAY | PROVIDERS: Family Provider Family Medicine; PCP Family Medicine; Visit Provider Obstetrics & Gynecology | DX: Z30.017 Encounter for initial prescription of implantable subdermal contraceptive (principal) | CPT/HCPCS: 81025 ==

== ENCOUNTER 2022-10-08 09:22 | Outpatient (CLI) | payer OTHER, MEDICAID, SELFPAY ==
--- NOTE | 2022-10-08 09:27 | US_ITS ---
WS: [id number] EARLY OBSTETRICAL ULTRASOUND (<14 WEEKS). HISTORY: LESS THAN 8 WEEKS /HX OF GDM COMPARISON: None available. Single intrauterine gestational sac is identified. Cardiac activity at 157 BPM. [place]-rump length michael sures 4.2 cm which corresponds to a gestation of 11w1d. Normal-appearing yolk sac and amnion demonstr ated. Very small subchorionic hemorrhage is suspected along the lower uterine segment. No free fluid. Normal size ovaries with no mass. US/US OB <= 14 weeks fetus [id number] IMPRESSION: 1. Single intrauterine gestation of 11 weeks 1 day with an EDC of 04/28/2023. 2. Normal cardiac activity
== END 2022-10-08 09:23 | disposition home or self-care (01) ==
PROVIDERS: PCP Family Medicine; Visit Provider Family Medicine
DX: Z34.91 Encounter for supervision of normal pregnancy, unspecified, first trimester (principal); Z3A.11 11 weeks gestation of pregnancy
CPT/HCPCS: 76801

== ENCOUNTER 2023-04-02 11:20 | Outpatient (CLI) | payer OTHER, MEDICAID, SELFPAY ==
[2023-04-02 11:20] VITALS: BMI 33.3
[2023-04-02 11:39] VITALS: BP 112/69; PULSE 115
[2023-04-02 11:54] VITALS: BP 116/68; PULSE 96
[2023-04-02 12:06] VITALS: BP 119/58; PULSE 121
== END 2023-04-02 12:08 | disposition home or self-care (01) ==
LOC: OPOB 11:21 → OBGYN 11:23
PROVIDERS: PCP Family Medicine; Visit Provider Family Medicine
DX: O24.419 Gestational diabetes mellitus in pregnancy, unspecified control (principal)
CPT/HCPCS: 59025

== ENCOUNTER 2023-04-09 10:14 | Outpatient (CLI) | payer OTHER, MEDICAID, SELFPAY ==
[2023-04-09 10:27] VITALS: TEMP 36.4
[2023-04-09 10:28] VITALS: BP 132/78; PULSE 96
[2023-04-09 10:42] VITALS: BMI 32.8
[2023-04-09 10:43] VITALS: BP 132/76; PULSE 90
== END 2023-04-09 10:55 | disposition home or self-care (01) ==
LOC: OPOB 10:23 → OBGYN 10:24
PROVIDERS: PCP Family Medicine; Visit Provider Family Medicine
DX: Z36.9 Encounter for antenatal screening, unspecified (principal)
CPT/HCPCS: 59025

== ENCOUNTER 2023-04-13 09:49 | Outpatient (CLI) | payer OTHER, MEDICAID, SELFPAY ==
[2023-04-13 09:47] VITALS: BMI 33.1
[2023-04-13 09:56] VITALS: BP 139/82; PULSE 104
[2023-04-13 10:00] VITALS: BP 140/74; PULSE 94; RESP 18
[2023-04-13 10:17] VITALS: BP 126/80; PULSE 96
[2023-04-13 10:37] VITALS: BP 140/74; PULSE 94
== END 2023-04-13 10:50 | disposition home or self-care (01) ==
LOC: OPOB 09:50 → OBGYN 09:51
PROVIDERS: Absent Provider Family Medicine; PCP Family Medicine; Visit Provider Family Medicine
DX: O36.8390 Maternal care for abnormalities of the fetal heart rate or rhythm, unspecified trimester, not applicable or unspecified (principal); Z3A.00 Weeks of gestation of pregnancy not specified
CPT/HCPCS: 59025; 99211

== ENCOUNTER 2023-04-16 09:42 | Outpatient (CLI) | payer OTHER, MEDICAID, SELFPAY ==
[2023-04-16 09:57] VITALS: BP 107/72; PULSE 125; TEMP 36.8
[2023-04-16 10:01] VITALS: RESP 17; TEMP 36.8
[2023-04-16 10:12] VITALS: BP 107/68; PULSE 113
[2023-04-16 10:27] VITALS: BP 110/69; PULSE 109
[2023-04-16 10:29] VITALS: BMI 33.5
[2023-04-16 10:35] VITALS: BP 110/69; PULSE 109
== END 2023-04-16 10:45 | disposition home or self-care (01) ==
LOC: OPOB 09:42 → OBGYN 09:43
PROVIDERS: PCP Family Medicine; Visit Provider Family Medicine
DX: O24.419 Gestational diabetes mellitus in pregnancy, unspecified control (principal); Z3A.00 Weeks of gestation of pregnancy not specified
CPT/HCPCS: 59025; 99211

== ENCOUNTER 2023-04-22 06:03 | Inpatient (IN) | payer OTHER, MEDICAID, SELFPAY ==
[2023-04-21 19:25] VITALS: RESP 15; TEMP 36.8
[2023-04-21 19:27] VITALS: BMI 32.4
[2023-04-21 19:43] VITALS: BP 126/67; PULSE 93; TEMP 36.8
[2023-04-21] MEDS: miSOPROStol 100 mcg tablet 25 MCG VAGINAL (20:08)
[2023-04-21 20:28] LABS: Glucose Point of Care 83 mg/dL (70-110)
[2023-04-21 22:24] VITALS: BP 108/71; PULSE 78
[2023-04-21 23:16] LABS: Basophils % 0.2 %; Eosinophils # 0.1 10^3/uL (0.0-0.8); Eosinophils % 0.8 %; Hematocrit 36.1 % (36-47); Lymphocytes # 4.9 10^3/uL (0.8-4.8); Lymphocytes % 37.7 %; Mean Corpuscular HGB Conc 31.9 g/dL (30-55); Mean Corpuscular Hemoglobin 27.5 pg (27-33); Mean Corpuscular Volume 86.4 fl (85-98); Mean Platelet Volume 9.5 fL (7.4-10.4); Monocytes # 0.7 10^3/uL (0.2-0.9); Monocytes % 5.4 %; Neutrophils # 7.24 10^3/uL (1.8-7.7); Neutrophils % 55.5 %; Nucleated Red Blood Cells % 0 %; Platelet Count 415 10^3/cmm (157-399); Red Blood Count 4.18 10^6/uL (3.85-5.65); Red Cell Distribution Width 13.3 % (12.1-15.1); White Blood Count 13.04 10^3/uL (3.29-11.43)
[2023-04-21 23:34] VITALS: BP 122/67; PULSE 80; TEMP 36.4
[2023-04-22] VITALS (60 sets, daily range): BP systolic 105–143; BP diastolic 51–79; PULSE 57–224; RESP 16–18; TEMP 36.2–36.9; O2SAT 77–100
[2023-04-22 00:07] LABS: Glucose Point of Care 111 mg/dL (70-110)
[2023-04-22] MEDS: miSOPROStol 100 mcg tablet 25 MCG VAGINAL ×2 (00:08→04:37)
[2023-04-22 04:06] LABS: Glucose Point of Care 106 mg/dL (70-110)
[2023-04-22] MEDS: lactated ringers 1,000 ML 999 ML IV ×2 (06:12→07:45)
[2023-04-22] MEDS: ROPivacaine syringe 100 MG/50 ML SYRINGE 10 MG EPIDURAL (08:00)
--- NOTE | 2023-04-22 08:09 | ANES.PREANE2 ---
Pre-Anesthetic Assessment Height/Weight: Height 1.65 m Weight 88.451 kg Temp Pulse Resp BP Pulse Ox O2 Del Method 97.2 F L 93 15 132/58 100 Room Air 04/22/23 01:58 04/22/23 08:07 04/21/23 19:25 04/22/23 08:04 04/22/23 08:07 04/21/23 19:27 Epidural Familial anesthetic complications: None Was Beta Ashvin taken within 24 hours: N/A Was Clonidine taken within 24 hours: N/A Last intake: > 8hrs Social No alcohol and No tobacco Exam alert, oriented x 3, clear to auscultation bilaterally and regular rate & rhythm Airway Mallampati: Class I Dentition: full Metabolic Diabetes Mellitus Anesthetic Plan ASA status: 3 Anesthesia: Regional (specify below) Risk of > 500 ml blood loss (7ml/kg in children): Yes, adequate IV access and fluids planned Medications/Allergies Home Medications Medication Instructions Recorded Confirmed Last Taken Type Vitamin 1 tab PO DAILY 10/31/19 04/16/23 04/02/23 09:00 History famotidine 20 mg tablet 20 mg PO DAILY 04/02/23 04/16/23 04/02/23 09:00 History metformin 500 mg tablet 500 mg PO DAILY 04/02/23 04/16/23 04/02/23 09:00 History Allergies Allergy/AdvReac Type Severity Reaction Status Date / Time No Known Allergies Allergy Verified 04/09/23 10:55 Current Medications Generic Name Dose Route Start Last Admin Trade Name Freq PRN Reason Stop Dose Admin Lactated Ringer's 1,000 mls @ 999 mls/hr 04/22/23 06:01 04/22/23 06:12 Lactated Ringers IV 999 mls/hr .Q1H1M PRN Administration See label comments [facility] Anesthesia Medical History (Updated 01/17/20 @ 13:25 by Katherine Boone RN) Frequent headaches Mood disorder Seasonal allergies Family History (Updated 01/17/20 @ 13:27 by Katherine Boone RN) Mother Diabetes Hypertension Grandfather Diabetes maternal Denies family history of Clotting disorder Hyperlipidemia Anesthesia complication Bleeding disorder Stroke Social History Smoking and tobacco status: never smoked Second hand smoke exposure: No Smoking risk assessment/counseling performed?: No Alcohol intake: never Substance/Drug Use: never Adopted: No Caregiver/support person: No Lives independently: Yes Housing: House Marital status: Number of children: 1 Number of grandchildren: 0 Female Reproductive History : 3 Data Anesthesia 04/21/23 23:08 Short CBC 04/21/23 04/21/23 Range/Units 19:30 23:08 WBC Cancelled 13.04 H Hgb Cancelled 11.50 Hct Cancelled 36.1 MCV Cancelled 86.4 Plt Count Cancelled 415 H Neut % (Auto) Cancelled 55.5 Neut # (Auto) Cancelled 7.24 Cardiac Studies: No Data to Display Anesthesia Procedures Epidural Time Out Performed: Yes Consents Signed: Procedure Consent Consent: requested by attending/covering physician, from patient, from other, risks and benefits reviewed and patient agrees to proceed Lumbar Level: L3-L4 Epidural position: sitting Epidural procedure: sterile prep of area, 1% lidocaine to numb the area, 18 g needle, negative for paresthesia passed, neg for paresthesia, test dose given, 1.5% xylocaine 1:200k epi (5 cc), 0.2% Ropivacaine bolus ml (5 cc), placed PCEA, no systemic response, sterile dressing applied, L.U.D. no apparent complications and 0.2% Ropiavacaine @ mls/hr (10 cc) Additional Comments: 3 unsuccessful attempts by me Kayla Hampton CRNA called for attempt and WILVER achieved at L3/4
[2023-04-22 08:35] LABS: Glucose Point of Care 98 mg/dL (70-110)
[2023-04-22] MEDS: oxytocin 30 UNIT/500 ML BAG 600 UNIT IV (10:04)
--- NOTE | 2023-04-22 10:09 | PM.OPHPUD ---
Labor & Delivery H&P Update Date of Procedure: April 22, 2023 Date H&P Performed: 04/20/23 Admission Diagnosis: 7-year-old 3 para 2-0-0-2 at 39 weeks estimated gestational age Well-controlled gestational diabetes Primary indication for procedure: Gestational diabetes Planned procedure: Vaginal delivery Other information: Other than the patient's gestational diabetes, she had a relatively unremarkable . Her blood type was a positive. Her antibody screen was negative. She is rubella immune. GBS negative. The remainder of her infectious disease profile was within normal limits. Her gestational diabetes was well controlled. Her glucose readings were rarely over 120 at 2 hours . Related Problem List Diagnoses (1) Gestational diabetes: (2) 39 weeks gestation of : . A&P Assessment and plan (1) Gestational diabetes: Induction plan due to gestational diabetes. Her has otherwise been unremarkable. I anticipate a smooth induction without complications. We will check her blood sugars every 4 hours. Her blood sugars been very well controlled since we began managing her diabetes. Status: Resolved (2) 39 weeks gestation of : Status: Resolved
--- NOTE | 2023-04-22 10:11 | P.PCNOB_ITS ---
Delivery Note: Date of delivery: April 22, 2023 Pre-delivery diagnoses: 1. 27-year-old 3 para 2-0-0-2 at 39 weeks estimated gestational age 2. Gestational diabetes well controlled with metformin and diet Post-delivery diagnoses: Status post spontaneous vaginal delivery Delivering Physician: Alin Resendiz Estimated blood loss (mL): 100 Delivery: DELIVERY: The patient progressed to complete without difficulty. She delivered a male with a weight of 7 pounds 4 ounces with Apgars of 7, 10. The baby was delivered from the AUBREY position. The baby's mouth and nose were suctioned at the site of the perineum. The baby was then completely delivered and placed on the mother's abdomen. The cord was then clamped and cut. There was a nuchal cord x1 which was delivered over the body. There was no meconium. The placenta and 3 vessel cord were delivered intact shortly thereafter. The perineum and vaginal vault were carefully examined. No lacerations were noted. Both the mother and the baby were in stable condition. History History History 2 Term 2 0 Miscarriages/Ectopic 0 Living Children 2 Past Pregnancies Del. Date GA/Weeks Outcome Route Wt Inf Gender Labor Lgth Comp. Anesth esia Location 03/15/18 39 live - full term Vaginal 7 lb 7 oz Male [facility] 11/22/19 39 live - full term Vaginal 7 lb [address] Caban [place] [facility] [place] [facility] [place] Delivery Date: 03/15/18 Last Updated by: Misa Caban MD Gestational diabetes Delivery Date: 11/22/19 Last Updated by: Katherine Boone RN epidural, GDM on insulin A&P Assessment and plan (1) Spontaneous vaginal delivery: Coding Level of Care Code Acute Code for Chg Fwd Diagnoses Spontaneous vaginal delivery O80
[2023-04-22] MEDS: ibuprofen 800 mg tablet PO ×2 (15:15→21:50)
[2023-04-22 17:22] LABS: Glucose Point of Care 79 mg/dL (70-110)
[2023-04-22 23:35] LABS: Hematocrit 30.8 % (36-47); Mean Corpuscular HGB Conc 32.1 g/dL (30-55); Mean Corpuscular Hemoglobin 27.6 pg (27-33); Mean Corpuscular Volume 85.8 fl (85-98); Mean Platelet Volume 9.7 fL (7.4-10.4); Platelet Count 371 10^3/cmm (157-399); Red Blood Count 3.59 10^6/uL (3.85-5.65); Red Cell Distribution Width 13.2 % (12.1-15.1); White Blood Count 13.53 10^3/uL (3.29-11.43)
[2023-04-23 04:00] VITALS: BP 128/82; PULSE 88; RESP 16; TEMP 36.7; O2SAT 96
--- NOTE | 2023-04-23 07:35 | PM.OBGYDC ---
Discharge Providers [employer] Date of Admission: 04/22/23 06:03 Date of Discharge: 04/23/23 Attending Provider at Admission: Alin Resendiz MD Attending Provider at Discharge: Alin Resendiz MD Primary Care Provider: Alin Resendiz MD Diagnoses at Discharge Discharge Diagnosis (1) Spontaneous vaginal delivery: Status: Acute Reason for Visit Reason for Visit: gestational DM Hospital Course Hospital Course Arrived to the hospital for induction due to gestational diabetes and being 39 weeks estimated gestational age. She was placed on Cytotec 25 mcg x 3. She progressed to complete without difficulty. Delivery was unremarkable. Her course was also unremarkable. Her bleeding was within normal limits. Her pain was well controlled. Her blood sugars were unremarkable throughout her hospital stay. There were no concerns what ever Information Peripartum Data: Delivery Method: Vaginal Physical Exam Narrative: The patient is alert. She appears comfortable. Her heart has a regular rate and rhythm with no murmurs appreciated. Lungs are clear to auscultation bilaterally. Her fundus is firm and below the umbilicus. Urinary Catheter Management: Caceres: Cath Placed During This Visit: yes, but has since been removed by the nurse Reason for Continuing Indwelling Catheter: Decision to DC Catheter Urinary Catheter Date of Insertion: 04/22/23 Urinary Catheter Time of Insertion: 08:50 Date Urinary Catheter Removed: 04/22/23 Time Urinary Catheter Discontinued: 09:50 History History History 3 Term 2 0 Miscarriages/Ectopic 0 Living Children 2 Past Pregnancies Del. Date GA/Weeks Outcome Route Wt Inf Gender Labor Lgth Comp. Anesthesia Location 03/15/18 39 live - full term Vaginal 7 lb 7 oz Male [facility] 11/22/19 39 live - full term Vaginal 7 lb [address] [place] [facility] [place]: 03/15/18 Last Updated by: Misa Caban MD Gestational diabetes Delivery Date: 11/22/19 Last Updated by: Katherine Boone RN epidural, GDM on insulin Discharge Data Studies Completed and Pending Laboratory Results WBC 13.53 10^3/uL (3.29-11.43) H 04/22/23 23:25 Corrected WBC Cancelled 04/21/23 19:30 RBC 3.59 10^6/uL (3.85-5.65) L 04/22/23 23:25 Hgb 9.90 g/dL (11.27-16.99) L 04/22/23 23:25 Hct 30.8 % (36-47) L 04/22/23 23:25 MCV 85.8 fl (85-98) 04/22/23 23:25 MCH 27.6 pg (27-33) 04/22/23 23:25 MCHC 32.1 g/dL (30-55) 04/22/23 23:25 RDW 13.2 % (12.1-15.1) 04/22/23 23:25 Plt Count 371 10^3/cmm (157-399) 04/22/23 23:25 MPV 9.7 fL (7.4-10.4) 04/22/23 23:25 Gran % Cancelled 04/21/23 19:30 Neut % (Auto) 55.5 % 04/21/23 23:08 Lymph % (Auto) 37.7 % 04/21/23 23:08 Wharton % (Auto) 5.4 % 04/21/23 23:08 Eos % (Auto) 0.8 % 04/21/23 23:08 Baso % (Auto) 0.2 % 04/21/23 23:08 Neut # (Auto) 7.24 10^3/uL (1.8-7.7) 04/21/23 23:08 Lymph # (Auto) 4.9 10^3/uL (0.8-4.8) H 04/21/23 23:08 Wharton # (Auto) 0.7 10^3/uL (0.2-0.9) 04/21/23 23:08 Eos # (Auto) 0.1 10^3/uL (0.0-0.8) 04/21/23 23:08 Baso # (Auto) 0.0 10^3/uL (0.0-0.1) 04/21/23 23:08 Absolute Gran (auto) Cancelled 04/21/23 19:30 Nucleated RBC % (auto) 0 % 04/21/23 23:08 Nucleated RBCs # 0.0 /100WBC 04/21/23 23:08 POC Glucose 79 mg/dL (70-110) 04/22/23 17:18 Vitals Last Vital Signs Temp 98.1 F 04/23/23 04:00 Pulse 88 04/23/23 04:00 Resp 16 04/23/23 04:00 BP 128/82 04/23/23 04:00 Pulse Ox 96 04/23/23 04:00 O2 Del Method Room Air 04/23/23 04:00 Discharge Plan Discharge Patient Disposition: Home Condition: Stable Prescriptions: New ibuprofen 800 mg Tablet 800 mg PO TID Qty: 45 0RF Continued Vitamin 1 tab PO DAILY Discontinued metformin 500 mg Tablet 500 mg PO DAILY famotidine 20 mg Tablet 20 mg PO DAILY Discharge Orders: Discharge Order (Routine); Ordered 04/23/23 Ordered By: Alin Resendiz Referrals: Alin Resendiz MD [Primary Care Provider] - 6 Weeks Discharge Diet: Usual diet Discharge Activity: Limit activity as instructed Patient Instructions: Opioid Safety Activity Restrictions/Additional Instructions: Check blood sugars as needed Discharge Attestations [employer] Time Spent in Discharge Care*: less than 30 min Status at Discharge: Cognitive status at discharge: cognitively intact, Behavioral status at discharge: cooperative, Coding Level of Care Code Acute Code for Chg Fwd Diagnoses Spontaneous vaginal delivery O80
--- NOTE | 2023-04-23 08:00 | ANE.PACU2 ---
Inpatient post-anesthesia follow up: Airway intact: Yes Vital signs: Temperature 98.2 F Pulse Rate 83 Respiratory Rate 16 Blood Pressure 124/78 Pulse Oximetry 96 Oxygen Delivery Me thod Room Air Oxygen Flow Rate Fraction of Inspir ed Oxygen Hydration adequate: Yes Nausea and vomiting: No Pain level: 1 Mental status: Baseline
[2023-04-23] MEDS: ibuprofen 800 mg tablet PO (08:41)
[2023-04-23] MEDS: prenatal vitamin Capsule 1 CAP PO (08:41)
[2023-04-23 10:00] VITALS: BP 118/73; PULSE 90; TEMP 36.8; O2SAT 97
[2023-04-23 12:20] VITALS: BP 124/78; PULSE 83; TEMP 36.8; O2SAT 96
== END 2023-04-23 12:32 | disposition home or self-care (01) | DRG 807 ==
LOC: OPOB 06:04 → OBGYN 06:04
PROVIDERS: Admitting Provider Family Medicine; PCP Family Medicine; Visit Provider Family Medicine
DX: O24.425 Gestational diabetes mellitus in childbirth, controlled by oral hypoglycemic drugs (principal); Z37.0 Single live birth; O69.81X0 Labor and delivery complicated by cord around neck, without compression, not applicable or unspecified; Z3A.39 39 weeks gestation of pregnancy
CPT/HCPCS: 36415; 36416; 51702; 59025; 59409; 82962; 85025; 85027; J2590; J2795; J7120

== ENCOUNTER 2023-08-11 09:44 | Day surgery (SDC) | payer OTHER, MEDICAID, SELFPAY ==
--- NOTE | 2023-08-07 10:20 | ANES.PREANE2 ---
Pre-Anesthetic Assessment Height/Weight: Height 1.65 m Operation Date: 08/11/23 10:25 Proposed Procedures p Laparoscopic bilateral salpingectomy 05732,Z30.2(Bilateral) - Lawrence Harrell MD Familial anesthetic complications: none Social No alcohol and No tobacco Exam alert, oriented x 3, clear to auscultation bilaterally and regular rate & rhythm Airway Mallampati: Class II Dentition: other (missing) Metabolic hx gestational DM Anesthetic Plan ASA status: 1 Anesthesia: General Risk of > 500 ml blood loss (7ml/kg in children): No Medications/Allergies Home Medications Medication Instructions Recorded Confirmed Last Taken Type Vitamin 1 tab PO DAILY 10/31/19 08/07/23 08/06/23 History Allergies Allergy/AdvReac Type Severity Reaction Status Date / Time No Known Allergies Allergy Verified 08/06/23 14:43 [facility] Anesthesia Medical History Frequent headaches Seasonal allergies Mood disorder Family History Mother Diabetes Hypertension Grandfather Diabetes maternal Denies family history of Clotting disorder Hyperlipidemia Anesthesia complication Bleeding disorder Stroke Social History Smoking and tobacco/nicotine status: never used tobacco/nicotine Second hand smoke exposure: No Alcohol intake: never Substance/Drug Use: never Adopted: No Caregiver/support person: No Lives independently: Yes Housing: House Marital status: Number of children: 1 Number of grandchildren: 0 Data Anesthesia Cardiac Studies: No Data to Display
[2023-08-07 10:26] LABS: Add Urine Microscopic? NO; Charge for UA Resulting for Rev
[2023-08-07 10:28] LABS: Basophils # 0.1 10^3/uL (0.0-0.1); Basophils % 0.5 %; Eosinophils # 0.1 10^3/uL (0.0-0.8); Eosinophils % 1.3 %; Hematocrit 38.8 % (36-47); Lymphocytes # 3.8 10^3/uL (0.8-4.8); Lymphocytes % 38.3 %; Mean Corpuscular HGB Conc 32.5 g/dL (30-55); Mean Corpuscular Hemoglobin 28.7 pg (27-33); Mean Corpuscular Volume 88.4 fl (85-98); Mean Platelet Volume 9.1 fL (7.4-10.4); Monocytes # 0.6 10^3/uL (0.2-0.9); Monocytes % 6.1 %; Neutrophils # 5.28 10^3/uL (1.8-7.7); Neutrophils % 53.6 %; Nucleated Red Blood Cells % 0 %; Platelet Count 508 10^3/cmm (157-399); Red Blood Count 4.39 10^6/uL (3.85-5.65); White Blood Count 9.85 10^3/uL (3.29-11.43)
[2023-08-07 10:38] LABS: Urine Appearance Clear (CLEAR); Urine Color Straw (Yellow); pH Urine 7 (5-7)
[2023-08-07 10:39] LABS: Bilirubin Urine Neg (Negative); Blood Urine Neg (Negative); Glucose Urine UA Norm (Normal); Ketones Urine Negative (Negative); Leukocyte Esterase Urine Negative (Negative); Nitrate Urine Negative (Negative); Protein Urine Neg (Negative); Urobilinogen Urine Neg (Negative)
[2023-08-07 10:48] LABS: Alanine Aminotransferase 17 U/L (0-33); Albumin Level 4.5 g/dL (3.5-5.2); Alkaline Phosphatase 91 U/L (35-105); Anion Gap 15.2 (5-19); Aspartate Amino Transferase 14 U/L (0-32); Blood Urea Nitrogen 10 mg/dL (6-20); Calcium 9.4 mg/dL (8.5-10.5); Carbon Dioxide 23 mmol/L (22-29); Chloride 105 mmol/L (98-107); Glomerular Filtration Rate 120.8 mL/min (90-130); Glucose 90 mg/dL (65-115); Osmolality Calculated 287 mOsm/kg (285-295); Potassium 4.2 mmol/L (3.5-5.1); Sodium 139 mmol/L (136-145); Total Bilirubin 0.2 mg/dL (0.15-1.2); Total Protein 7.5 g/dL (6.6-8.7)
[2023-08-11] VITALS (12 sets, daily range): BP systolic 111–139; BP diastolic 51–104; PULSE 54–85; RESP 15–17; TEMP 36.1–36.7; O2SAT 94–99
[2023-08-11 10:19] LABS: OR HCG Qualitative Urine Negative (Negative)
[2023-08-11] MEDS: sodium chloride 0.9% 500 ML IV (10:39)
[2023-08-11] MEDS: scopolamine 1.5 Patch 1 PATCH TRANSDERMA (10:41)
--- NOTE | 2023-08-11 10:44 | W.PM.OPSUD ---
Surgery/Procedure H&P Update DATE OF PROCEDURE: August 11, 2023 DATE H&P PERFORMED: 08/06/23 H&P UPDATE INFORMATION: I have reviewed H&P completed within last 30 days, I have examined patient prior to procedure and No changes to prior documentation PREOP DIAGNOSIS: Desire permanent sterilization PLANNED PROCEDURE: Operation Date: 08/11/23 11:25 Proposed Procedures p Laparoscopic bilateral salpingectomy 86697,Z30.2(Bilateral) - Lawrence Harrell MD
[2023-08-11] MEDS: ceFAZolin 2,000 MG in sodium chloride 0.9% (plus) 50 ML 100 MG IV (10:49)
--- NOTE | 2023-08-11 10:55 | P.ANESUD_ITS ---
Pre-Anesthetic Update Pre-Anesthetic Assessment: Date of Surgery/Procedure: 08/11/23 Preop Miriam gnosis: Desire permanent sterilization Proposed Procedure: Operation Date: 08/11/23 11:25 Proposed Procedures p Laparoscopic bilateral salpingectomy 97503,Z30.2(Bilateral) - Lawrence Harrell MD Any changes to Pre-Anesthetic Assessment?: No Last Intake: Intake Last Liquid Date 08/10/23 Last Liquid Time 22:00 Last Solid Date 08/10/23 Last Solid Time 18:00 Vitals: Temperature 97.8 F 08/11/23 10:03 Temperature Source Temporal Artery S can 08/11/23 10:03 Pulse Rate 74 08/11/23 10:03 Pulse Rhythm Regular 08/11/23 10:12 Pulse Strength 3+ Normal 08/11/23 10:12 Respiratory Rate 16 08/11/23 10:03 Blood Pressure 123/80 08/11/23 10:03 Blood Pressure Sheri n 94 08/11/23 10:03 Pulse Oximetry 99 08/11/23 10:03 Oxygen Delivery Me thod Room Air 08/11/23 10:12 Exam: Pre-Anes Outpt Exam: alert, oriented x 3, clear to auscultation bilaterally and regular rate & rhythm Cardiac Studies: No Data to Display
[2023-08-11] MEDS: sodium chloride 0.9% 1,000 ML 30 ML IV (11:15)
[2023-08-11] MEDS: BUPivacaine 0.5% INJ 30 mL INJECTION (11:28)
--- NOTE | 2023-08-11 11:47 | P.OP_ITS ---
Operative Report Date of procedure: August 11, 2023 Pre-op diagnosis: Desire permanent sterilization Post-op diagnosis: Same as above Post-op findings: Normal uterus Normal ovaries Normal fallopian tube Procedure done: Laparoscopic bilateral salpingectomy Specimens removed/disposition: Left and right fallopian tube Surgeon: Lawrence Harrell MD Estimated blood loss (mL): 5 IV fluids (mL): 700 Urine output (mL): 150 Complications: None Procedure: After informed consent, the patient was taken to the operating room where general anesthesia was administered. She was placed in the dorsal lithotomy position and prepped and draped in sterile fashion. Pre-Procedure Time-Out verifying the correct patient identity, correct procedure verified with consent, correct site and side, correct patient position, availability of correct implants and any special equipment or requirements was performed and acknowledge by the OR team. The patient was examined under anesthesia and found to have a normal uterus with normal adnexa. A weighted speculum was placed in the vagina, and the anterior lip of cervix was grasped with the single toothed tenaculum. A uterine manipulator was advanced into the endocervical canal and uterus. The tenaculum was removed after uterine manipulator was secured. The speculum was removed from the vagina. An intraumbilical incision was made with a scalpel. While tenting up on the abdomen, a Verres needle was admitted into the intra-abdominal cavity. A saline drop test was performed and noted to be within normal limits. Pneumoperitoneum was attained with 4 liters of carbon dioxide. The Verres needle was removed. A 5 mm Opitc view trocar and sleeve were admitted into the abdomen and laparoscopic confirmation of location was achieved. A second incision was made 3 cm above the symphysis pubis, and a 5 mm trocar sleeves were admitted into the abdomen under direct laparoscopic visualization without complication. A survey revealed normal abdominal anatomy with the exception of string adhesion to the right lower anterior abdominal wall. A 5 mm blunt probe was advanced through the second trocar sleeve, and light manipulation of ovaries and uterus to assess the posterior aspects was performed. The pelvic survey shows normal uterus, left and right adnexa. The patient was placed into Trendelenburg position. The fallopian tubes were inspected bilaterally and the fimbriated ends of the fallopian tubes were visualized bilaterally. Attention was then directed to the right side. The fallopian tube and mesosalpinx were grasped and the underlying mesosalpinx was cauterized and cut using the Ligasure device. Serial cauterization and cutting was used to separate the fallopian tube from the underlying mesosalpinx until it could be amputated cutting it approximated 2 cm from the cornua. Attention was then turned to the contralateral fallopian tube, which was removed in similar fashion. Both specimens were removed through the trocar and sent to pathology. The instruments were removed. The suprapubic trocar port was removed under di rect visualization insuring good hemostasis. The carbon dioxide was allowed to escape from the abdomen. The intraumbilical trocar sleeve was withdrawn under visualization with laparoscope in the sleeve to insure hemostasis. The skin incisions were closed with 3-O Monocryl subcuticular stich and Dermabond. The instruments were removed from the vagina, and excellent hemostasis was noted. The patient tolerated the procedure well, and sponge, lap and needle count were correct times two. The patient was taken to the recovery room in good condition.
--- NOTE | 2023-08-11 13:33 | ANE.PACU2 ---
Inpatient post-anesthesia follow up: Airway intact: Yes Vital signs: Temperature 98.1 F Pulse Rate 73 Respiratory Rate 16 Blood Pressure 116/80 Pulse Oximetry 98 Oxygen Delivery Me thod Room Air Oxygen Flow Rate 6 Fraction of Inspir ed Oxygen Hydration adequate: Yes Nausea and vomiting: No Pain level: 3 Mental status: Baseline
--- NOTE | 2023-08-11 13:47 | SUR.PHASEII ---
abdominal incision dry and intact
== END 2023-08-11 13:45 | disposition home or self-care (01) ==
PROVIDERS: Anesthesiology; PCP Family Medicine; Visit Provider Obstetrics & Gynecology
PROC: (CPT 58661; principal; 2023-08-11 11:05)
DX: Z30.2 Encounter for sterilization (principal)
CPT/HCPCS: 58661; 36415; 80053; 81003; 81025; 84703; 85025; 86850; 86900; 88302; J0690; J1100; J1170; J1885; J2405; J2704; J2710; J3010; J3490; J7030; J7040

== ENCOUNTER → 2024-04-29 14:07 | Outpatient (BNVA) | payer OTHER, MEDICAID, SELFPAY | PROVIDERS: PCP Family Medicine; Visit Provider Obstetrics & Gynecology | DX: N90.7 Vulvar cyst (principal) | CPT/HCPCS: 88304 ==